=== PATIENT | male | born 1960 | race Two or more races ===

== ENCOUNTER 2019-06-15 22:55 | Emergency (ER) | payer OTHER ==
[~2019-06-15] VITALS: Ht 167.6 cm; Wt 68.0 kg
[2019-06-15] MEDS ORDERED: Nitroglycerin 2% oint pkt TOPIC ONE (23:00)
[2019-06-15 23:05] VITALS: BP 152/74
--- NOTE | 2019-06-15 23:05 | NUR ---
ED Nurse Note: Patient was BIBA from street due to CP. YOSEPH x4, VSS at this time.
--- NOTE | 2019-06-15 23:05 | Emergency Room Report ---
History of Present Illness General Chief Complaint: Chest Pain Source: Patient Present Illness HPI Disclaimer: Please note that this report is being documented using [employer] technology. This can lead to erroneous entry secondary to incorrect interpretation by the dictating instrument. HPI: 58-year-old male with a history of psych disorder and seizure disorder currently not taking medications presents for evaluation of chest pain. Symptoms began abruptly 1 hour ago while he was a gas station. Described a pressure over the left side of his chest which is improving. Denies prior history of cardiac disease or chest pain. He has been taking an over-the- counter male herbal supplement over the past 2 days. Otherwise noncompliant with medications. Reports some swelling in the lower extremity though it is not edema he states his swelling around the left knee. Reports some difficulty breathing since the chest pain started though this is improving. He received 325 mg of aspirin on route. Twelve-lead EKG performed by EMS does not show signs of obvious ischemia. He refused nitroglycerin. He was drinking alcohol today PMH: Unspecified psych history, seizure disorder PSH: Unspecified brain and back surgery Allergies: None reported Social Hx: Alcohol use, smokes cigarettes Allergies: Coded Allergies: No Known Allergies (Unverified , 06/15/19) Nursing Documentation-PMH Past Medical History: No History, Except For History Of Psychiatric Problem: Yes - psych Hx Seizures: Yes Review of Systems All Other Systems: negative except mentioned in HPI Physical Exam Vital Signs Date Time Temp Pulse Resp B/P (MAP) Pulse Ox O2 Delivery O2 Flow Rate FiO2 06/15/19 22:52 98.1 88 17 152/74 (100) 98 Room Air General: Awake and alert, appears anxious but in no distress HEENT: NC/AT. EOMI. Cardiovascular: RRR. S1 and S2 normal. No murmur appreciated Resp: Normal work of breathing. No cough, wheezing or crackles appreciated Abdomen: Abdomen is soft, nondistended. Nontender Skin: Intact. No abrasions, laceration or rash over the exposed skin MSK: Normal tone and bulk. Moving all extremities. No obvious deformity. Neuro: Awake and alert. Mentating appropriately. Medical Decision Making Diagnostic Impression: Primary Impression: Chest pain ER Course 58-year-old male presents for evaluation of chest pain. Differential includes was not limited to ACS, angina, pneumothorax, pneumonia, bronchitis, medication side effect, intoxication, drug abuse. Will obtain EKG, chest x-ray, labs including cardiac enzymes and tox screen. Patient arrives with stable vital signs and overall is well-appearing. No obvious distress. Laboratory Tests Test 06/15/19 23:12 06/16/19 02:12 White Blood Count 7.6 K/UL (4.8-10.8) Red Blood Count 4.23 M/UL (4.70-6.10) L Hemoglobin 12.1 G/DL (14.2-18.0) L Hematocrit 36.3 % (42.0-52.0) L Mean Corpuscular Volume 86 FL (80-99) Mean Corpuscular Hemoglobin 28.6 PG (27.0-31.0) Mean Corpuscular Hemoglobin Concent 33.3 G/DL (32.0-36.0) Red Cell Distribution Width 12.6 % (11.6-14.8) Platelet Count 248 K/UL (150-450) Mean Platelet Volume 5.2 FL (6.5-10.1) L Neutrophils (%) (Auto) 68.6 % (45.0-75.0) Lymphocytes (%) (Auto) 19.8 % (20.0-45.0) L Monocytes (%) (Auto) 10.3 % (1.0-10.0) H Eosinophils (%) (Auto) 0.8 % (0.0-3.0) Basophils (%) (Auto) 0.6 % (0.0-2.0) Sodium Level 134 MMOL/L (136-145) L Potassium Level 3.8 MMOL/L (3.5-5.1) Chloride Level 101 MMOL/L (98-107) Carbon Dioxide Level 26 MMOL/L (21-32) Anion Gap 7 mmol/L (5-15) Blood Urea Nitrogen 17 mg/dL (7-18) Creatinine 0.7 MG/DL (0.55-1.30) Estimate Glomerular Filtration Rate > 60 mL/min (>60) Glucose Level 118 MG/DL (74-106) H Calcium Level 8.3 MG/DL (8.5-10.1) L Total Bilirubin 0.4 MG/DL (0.2-1.0) Aspartate Amino Transferase (AST) 26 U/L (15-37) Alanine Aminotransferase (ALT) 50 U/L (12-78) Alkaline Phosphatase 94 U/L (46-116) Total Creatine Kinase 99 U/L (26-308) Creatine Kinase MB 3.1 NG/ML (0.0-3.6) Creatine Kinase MB Relative Index 3.1 Troponin I 0.006 ng/mL (0.000-0.056) 0.006 ng/mL (0.000-0.056) Pro-B-Type Natriuretic Peptide 85 pg/mL (0-125) Total Protein 7.3 G/DL (6.4-8.2) Albumin 3.1 G/DL (3.4-5.0) L Globulin 4.2 g/dL Albumin/Globulin Ratio 0.7 (1.0-2.7) L Lipase 72 U/L (73-393) L EKG Diagnostic Results EKG Time: 23:00 Rate: normal Rhythm: NSR ST Segments: no acute changes Other Impression Sinus rhythm, normal axis, normal intervals, no ST segment changes. Rhythm Strip Diag. Results Rhythm Strip Time: 23:00 EP Interpretation: yes Rate: 90s Rhythm: NSR, no PVC's, no ectopy Chest X-Ray Diagnostic Results Chest X-Ray Diagnostic Results : Chest X-Ray Ordered: Yes # of Views/Limited/Complete: 1 View Indication: Chest Pain EP Interpretation: Yes Interpretation: no consolidation, no effusion, no pneumothorax, no acute cardiopulmonary disease Impression: No acute disease Electronically Signed by: Electronically signed by Dr. Carlos Nichols Reevaluation Time: 02:54 Last Vital Signs Date Time Temp Pulse Resp B/P (MAP) Pulse Ox O2 Delivery O2 Flow Rate FiO2 06/15/19 22:52 98.1 88 17 152/74 (100) 98 Room Air Reevaluation Impression EKG does not show any signs of acute ischemia. Chest x-ray unremarkable. Labs have returned within normal limits. Troponins are negative x2. Patient was unable to provide a urine sample for tox analysis though he has been chest pain- free and at this point do not believe he would provide any change in his disposition or treatment plan. Vital signs are within normal limits. He will be discharged with outpatient follow-up. Discussed reasons to return to the emergency department. Understands and agrees with treatment plan. Disposition: HOME, SELF-CARE Condition: Stable Scripts Unable to Obtain Active Prescriptions or Reported Meds Magdalena,Carlos MD Jun 15, 2019 23:05
[2019-06-15 23:40] LABS: BASOPHILS % (AUTO) 0.6 % (0.0-2.0); EOSINOPHILS % (AUTO) 0.8 % (0.0-3.0); HEMATOCRIT 36.3 % (42.0-52.0); HEMOGLOBIN 12.1 G/DL (14.2-18.0); LYMPHOCYTES % (AUTO) 19.8 % (20.0-45.0); MEAN CORPUSCULAR VOLUME 86 FL (80-99); MONOCYTES % (AUTO) 10.3 % (1.0-10.0); NEUTROPHILS % (AUTO) 68.6 % (45.0-75.0); PLATELET COUNT 248 K/UL (150-450); RED BLOOD COUNT 4.23 M/UL (4.70-6.10); RED CELL DISTRIBUTION WIDTH 12.6 % (11.6-14.8); WHITE BLOOD COUNT 7.6 K/UL (4.8-10.8)
[2019-06-15 23:47] VITALS: BP 121/104
[2019-06-15 23:47] LABS: ANION GAP 7 mmol/L (5-15); BLOOD UREA NITROGEN 17 mg/dL (7-18); CALCIUM 8.3 MG/DL (8.5-10.1); CARBON DIOXIDE 26 MMOL/L (21-32); CHLORIDE 101 MMOL/L (98-107); CREATININE 0.7 MG/DL (0.55-1.30); POTASSIUM 3.8 MMOL/L (3.5-5.1); SODIUM 134 MMOL/L (136-145)
[2019-06-16 00:04] LABS: ALANINE AMINOTRANSFERASE 50 U/L (12-78); ALBUMIN 3.1 G/DL (3.4-5.0); ALBUMIN/GLOBULIN RATIO 0.7 (1.0-2.7); ALKALINE PHOSPHATASE 94 U/L (46-116); ASPARTATE AMINO TRANSFERASE 26 U/L (15-37); BILIRUBIN,TOTAL 0.4 MG/DL (0.2-1.0); CKMB 3.1 NG/ML (0.0-3.6); CREATINE KINASE 99 U/L (26-308)
--- NOTE | 2019-06-16 03:37 | NUR ---
Homeless Discharge: Patient is being discharged from medical care. Awake, alert and oriented x3. After care instructions, including referral to community resources were given. Patient verbalized understanding of After care instructions; at this time patient does not request medications, equipment or placement. Patient signed patient consent in the medical record for patient destination upon discharge. All medical devices such as IV and ID band were removed. Patient ambulated out with all personal belongings with steady gait.
--- NOTE | 2019-06-16 12:31 | Diagnostic Imaging Report ---
Indication: Chest pain Comparison: None A single view chest radiograph was obtained. Findings: Cardiomediastinal appearance is within normal limits for age. The lungs are clear. Pulmonary vascularity is appropriate. The diaphragmatic contour is smooth and costophrenic angles are sharp. No pleural effusions are identified. The bones are unremarkable. Impression: No acute findings
--- NOTE | 2019-06-17 13:57 | Cardiology Report ---
APPROVED REPORT EKG Measurement Heart [id number] Sinus rhythm with premature supraventricular complexes Otherwise normal ECG
== END 2019-06-16 03:22 | disposition home or self-care (01) ==
LOC: EDBD 22:55 → EMR 23:10
DX: R07.9 Chest pain, unspecified (principal); G40.909 Epilepsy, unspecified, not intractable, without status epilepticus; Z98.890 Other specified postprocedural states; Z72.89 Other problems related to lifestyle; Z72.0 Tobacco use
CPT/HCPCS: 36415; 71045; 80053; 82550; 82553; 83690; 83880; 84484; 85025; 93005; Z7502; 99284

== ENCOUNTER 2019-06-17 08:30 | Emergency (ER) | payer OTHER ==
[~2019-06-17] VITALS: Ht 180.3 cm; Wt 72.6 kg
--- NOTE | 2019-06-17 08:45 | NUR ---
ED Nurse Note: reinforcing iron and rebar workers at bedside.
[2019-06-17 08:50] VITALS: BP 134/81
--- NOTE | 2019-06-17 08:50 | NUR ---
ED Nurse Note: A/OX3. PT REPORTS OF HEARING VOICES AND TELLING HIM TO "SHUT THE FUCK UP". PT STATES THAT HE HAS A DESIRE TO HURT OTHERS BY "ATTACKING THEM BY JUMPING ON THEM". PT STATES THAT HE TAKES PSYCH MEDS BUT DOES NOT KNOW THE NAME,DOSE, FREQUENCY AND HE HAS NOT BEEN TAKING THEM BECAUSE HE LOST THE MEDS. PT IS RESTING IN RNEY WITH HIS EYES CLOSED, CALM, COOPERATIVE. NAD NOTED.
--- NOTE | 2019-06-17 08:53 | NUR ---
ED Nurse Note: ALL BELONGINGS TAKEN OFF FROM PT AND STORED IN PSYCH LOCKER #1. TANISHA TENA AND STEEL SASH ERECTOR MADE AWARE OF PT'S CONDITION, WAITING FOR SITTER TO BE ASSIGNED. SECURITY AT BEDSIDE. PT IS RESTING IN GURNEY. BREATHING NORMAL/EVEN/UNLABORED. SKIN WARM/DRY/INTACT. NAD NOTED.
--- NOTE | 2019-06-17 08:54 | NUR ---
ED Nurse Note: ALL SAFETY MEASURES MET.
--- NOTE | 2019-06-17 09:31 | NUR ---
ED Nurse Note: URINAL PROVIDED TO PT.
--- NOTE | 2019-06-17 10:17 | Emergency Room Report ---
History of Present Illness General Chief Complaint: Behavioral Complaint Source: Patient Present Illness HPI Patient was recently here with complaints of chest pain Presents reporting that he was tired and needed to sleep Patient reported to the triage nurse that he wanted to hurt other people Upon my evaluation denies any thought process of this Denies any chest pain denies any abdominal pain And reports that he would like to sleep further Allergies: Coded Allergies: SULFA (SULFONAMIDE ANTIBIOTICS) (Verified Allergy, Severe, 06/17/19) Patient History Past Medical History: see triage record Reviewed Nursing Documentation: PMH: Agreed; PSxH: Agreed Nursing Documentation-PMH Past Medical History: No History, Except For History Of Psychiatric Problem: Yes - Paranoid Schizophrenia, PTSD, Depression , Bipolar Hx Seizures: Yes Review of Systems All Other Systems: negative except mentioned in HPI Physical Exam Vital Signs Date Time Temp Pulse Resp B/P (MAP) Pulse Ox O2 Delivery O2 Flow Rate FiO2 06/17/19 08:44 98.1 72 16 134/81 (98) 98 Room Air Sp02 EP Interpretation: reviewed, normal General Appearance: well appearing, no apparent distress Head: normocephalic, atraumatic Eyes: bilateral eye PERRL, bilateral eye EOMI ENT: hearing grossly normal, normal pharynx, TMs + canals normal, uvula midline Neck: full range of motion, supple, no meningismus, no bony tend Respiratory: lungs clear, normal breath sounds, no rhonchi, no respiratory distress, no retraction, no accessory muscle use Cardiovascular #1: normal peripheral pulses, regular rate, rhythm, no edema, no gallop, no JVD, no murmur Gastrointestinal: normal bowel sounds, non tender, soft, no mass, no organomegaly, non-distended, no guarding, no hernia, no pulsatile mass, no rebound Genitourinary: no CVA tenderness Musculoskeletal: normal inspection Neurologic: motor strength/tone normal, oriented x3, sensory intact, responsive Psychiatric: mood/affect normal - Initial report of wanting to hurt others Skin: no rash Lymphatic: normal inspection, no adenopathy Medical Decision Making Diagnostic Impression: Primary Impression: Chest pain Additional Impression: psychiatric clearance ER Course At this time patient resting comfortably multiple differentials including acute psychosis, ACS, electrolyte abnormalities entertained Patient had recent extensive work-up performed these were not repeated Given the patient's reports of wanting to hurt other people psychiatric services were consulted Patient was seen and further cleared At this time patient had to needles which reported that he injects heroin with in his left hand Also had a scissor on the right hand and reported that he would stab himself if he was not given morphine Psychiatric services ,Dr. Solorio return to the emergency room and spoke further with the police department patient also was found to have illicit Methadone on himself Given the medical and psychiatric clearance at this time patient was taken into police custody Last Vital Signs Date Time Temp Pulse Resp B/P (MAP) Pulse Ox O2 Delivery O2 Flow Rate FiO2 06/17/19 08:50 98.1 78 16 134/81 98 Room Air Status: unchanged Disposition: D/C TO LAW ENFORCEMENT IN [facility] Condition: Stable Scripts Unable to Obtain Active Prescriptions or Reported Meds Referrals: [facility],REFERRING (PCP) Patient Instructions: Medical Screening Exam Additional Instructions: Patient handcuffed and taken into [employer] police custody Zacarias Xiao DO Jun 17, 2019 10:17
--- NOTE | 2019-06-17 10:37 | NUR ---
ED Nurse Note: pt states that he is now SI, denies any plans. Dr. Solorio is notified. Per Dr. Solorio, "pt is cleared for both SI/HI. Pt can be discharged". RN instructed pt that pt is cleared by Dr. Solorio and ok to be dicharged.
--- NOTE | 2019-06-17 11:37 | NUR ---
ED Nurse Note: PT REFUSED TO BE DISCHARGED. RN WENT TO CALL SECURITY AND FOUND PT POINTING A SCISSOR TOWARDS HIS RIGHT NECK AND EATING CHIPS WITH THE OTHER HAND. STATES,"TALK TO LILI AT [facility] OFFICE. SHE KNOWS EVERYTHING ABOUT ME". RN INSTRUCTED PT TO PUT THE SCISSOR DOWN BUT PT REFUSED. SECURITY AT BEDSIDE. DARINEL GARAY AND DR. ANDERSEN MADE AWARE. RN WAS INFORMED BY SECURITY THAT [employer] WAS INFORMED ABOUT 20MIN AGO. DARINEL GARAY LEFT MESSAGE TO . RN CONTACTED OLMAN FROM [facility] OFFICE BUT PT REFUSED TO TALK TO HER.
--- NOTE | 2019-06-17 11:47 | NUR ---
ED Nurse Note: [employer] AT BEDSIDE.
--- NOTE | 2019-06-17 11:51 | NUR ---
ED Nurse Note: DR. GARVEY AT BEDSIDE
--- NOTE | 2019-06-17 11:59 | NUR ---
ED Nurse Note: PT LEFT ED WITH [employer] KEVYN #[id number]. BREATHING NORMAL/EVEN/UNLABORED. SKIN WARM/DRY/INTACT. ALL BELONGINGS TAKEN BY [employer].
[2019-06-17 12:05] VITALS: BP 134/81
--- NOTE | 2019-06-17 21:30 | Consultation ---
DATE OF CONSULTATION: 06/17/2019 HISTORY OF PRESENT ILLNESS: The patient is a 58-year-old male with a history of heroin dependence who has been admitted to the hospital with a chief complaint of "withdrawing from heroin." The patient requested IV morphine. The patient denied any suicidal ideation, stated that he has homicidal thoughts. He did not identify any specific person and stated that people are trying to hurt him. He would not able to identify any specific person that he has homicidal thoughts towards. The patient stated that he wants to be left alone and sleep. The patient is not in active withdrawal from opiates. After he was told that he is being discharged, he held a scissors next to his throat and demanded the ER doctor to give him morphine. Security were called as well as police. The patient is not an imminent danger to self or others and he is making threatening comments to get morphine or opiates. PAST PSYCHIATRIC HISTORY: He stated that he has been seeing a psychiatrist in shelter. When I asked him about the psychotropic medication he is on, he stated "dope." PAST MEDICAL HISTORY: Not significant. ALLERGIES: No known drug allergies. SUBSTANCE ABUSE HISTORY: Significant for illicit drugs. heroin. MENTAL STATUS EXAMINATION: Alert and oriented x4. Mood is neutral. Affect is full range. Congruent with mood. Thought process is linear and goal oriented. Thought content, no suicidal or homicidal ideation. No psychotic symptoms. Cognition is intact. Insight and judgement is fair. ASSESSMENT: [place] I Opioid dependence with heroin. [place] II Deferred. [place] III None. [place] IV Low. [place] V 50 PLAN: 1. The patient is not an imminent danger to self or others. 2. The patient . 3. . 4. He admitted that he has been using drugs illegally. 5. The patient will be transferred out by the police from our ER. Sima Solorio M.D. DR: [place] JOB#: [id number] CC:
== END 2019-06-17 12:07 | disposition home or self-care (01) ==
LOC: EMR 09:07
DX: R07.9 Chest pain, unspecified (principal); F23 Brief psychotic disorder; F43.10 Post-traumatic stress disorder, unspecified; R56.9 Unspecified convulsions; F33.9 Major depressive disorder, recurrent, unspecified
CPT/HCPCS: 99282